=== PATIENT | female | born 1990 | race African-American/Black ===

== ENCOUNTER 2018-05-25 01:26 | Emergency (ER) | payer MEDICAID ==
[~2018-05-25] VITALS: Ht 167.6 cm; Wt 54.0 kg
[2018-05-25] MEDS ORDERED: VISCOUS LIDOCAINE 2% 15 ML UDC PO STA (03:12)
[2018-05-25] MEDS ORDERED: ONDANSETRON HCL 4MG/2ML INJ IV STA (03:12)
[2018-05-25] MEDS ORDERED: MAGNESIUM/ALUMINUM HYDROXIDE/SIMETHICONE 30ML UDC PO STA (03:12)
[2018-05-25] MEDS ORDERED: SODIUM CHLORIDE 0.9% 1,000 ML IV ONE (03:12)
[2018-05-25 03:42] LABS: HEMOGLOBIN. 13.2 g/dL (12.0-16.0); MEAN CORPUSCULAR HEMOGLOBIN 31.4 pg (28.0-32.0); MEAN CORPUSCULAR VOLUME 92.9 fL (81.0-99.0); MEAN PLATELET VOLUME 7.7 fl (7.4-10.4); PLATELET 217 x1000/uL (130-400); RED CELL DISTRIBUTION WIDTH 13.7 % (11.6-14.6)
[2018-05-25 03:49] LABS: CHLORIDE 111 mEq/L (98-107)
[2018-05-25 04:00] LABS: B-HCG QUANTITATIVE < 1 mIU/mL (<3)
[2018-05-25 04:43] LABS: CLARITY URINE CLEAR (CLEAR); COLOR URINE YELLOW (YELLOW); KETONES URINE TRACE (NEGATIVE); LEUKOCYTE ESTERASE URINE NEGATIVE (NEGATIVE); NITRITE URINE NEGATIVE (NEGATIVE); OCCULT BLOOD URINE NEGATIVE (NEGATIVE); PH URINE 6.5 (4.5-8.0); PROTEIN URINE NEGATIVE (NEGATIVE)
[2018-05-25 06:10] LABS: PLATELET ESTIMATE NORMAL
[2018-05-25 06:35] VITALS: BP 103/55
[2018-05-25] MEDS ORDERED: IOHEXOL-300 100 ML BOTTLE ONE (07:20)
== END 2018-05-25 06:36 | disposition home or self-care (01) ==
LOC: ER 01:48
DX: R10.31 Right lower quadrant pain (principal); Z87.440 Personal history of urinary (tract) infections
CPT/HCPCS: 36415; 74177; 80053; 81003; 81025; 83605; 83690; 84702; 85025; 93005; 99284; J7030; Q9967